=== PATIENT | female | born 1980 | race Caucasian/White ===

== ENCOUNTER 2017-04-19 10:38 | Emergency (ER) | payer OTHER ==
[~2017-04-19 10:38] MED LIST: MOTRIN800 MG PO; TRAMADOL HCL50 MG PO
[2017-04-19] MEDS ORDERED: LEVOTHYROXINE75 MCG PO (10:44)
[2017-04-19] MEDS ORDERED: PRENATABS FA T1 EACH PO (10:45)
[2017-04-19 11:12] LABS: BASO # 0.1 10*3/uL (0.0-0.1); BASO % 0.4 % (0.0-1.0); EOS % 0.2 % (1.0-4.0); HEMATOCRIT 41.2 % (37.0-47.0); HEMOGLOBIN 13.3 g/dl (12.0-16.0); LYMPH # 1.3 10*3/uL (1.3-4.4); LYMPH % 9.8 % (27.0-41.0); MEAN CELL VOLUME 90.4 fl (81.0-99.0); MEAN CORPUSCULAR HGB 29.2 pg (27.0-31.0); MEAN CORPUSCULAR HGB CONC 32.3 g/dl (33.0-37.0); MEAN PLATELET VOLUME 9.6 fl (9.6-12.3); MONO # 0.8 10*3/uL (0.1-1.0); NEUT # 10.8 10*3/uL (2.3-7.9); NEUT % 83.1 % (47.0-73.0); PLATELET COUNT AUTOMATED 309 10*3/uL (130-400); RED BLOOD COUNT 4.56 10*6/uL (4.10-5.10); RED CELL DISTRI WIDTH 12.9 % (0-14.5)
[2017-04-19 11:18] LABS: BILIRUBIN NEGATIVE (NEGATIVE); BLOOD NEGATIVE (NEGATIVE); CLARITY CLEAR (CLEAR); COLOR YELLOW (YELLOW); GLUCOSE NEGATIVE (NEGATIVE); KETONE NEGATIVE (NEGATIVE); LEUKO ESTERASE NEGATIVE (NEGATIVE); NITRITE NEGATIVE (NEGATIVE); UROBILINOGEN 0.2 E.U./dl (0.2-1.0)
[2017-04-19 11:27] LABS: ALBUMIN 3.5 gm/dl (3.1-4.5); ALKALINE PHOSPHATASE 83 U/L (45-117); BUN 13 mg/dl (7-24); CHLORIDE 103 mmol/L (98-107); CREATININE 0.69 mg/dL (0.55-1.02); LIPASE 74 U/L (73-393); POTASSIUM 4.4 mmol/L (3.5-5.1); SGOT/AST 17 IU/L (3-35); SGPT/ALT 30 U/L (12-78); SODIUM 136 mmol/L (136-145); TOTAL PROTEIN 7.3 gm/dL (6.4-8.2)
[2017-04-19 11:32] LABS: BACTERIA 1+; EPITHELIAL CELLS 0-2; RBC 0-2 rbc/hpf (0-2)
[2017-04-19] MEDS ORDERED: FLOMAX0.4 MG PO (15:39)
== END 2017-04-19 15:48 | disposition home or self-care (01) ==
LOC: ED 10:38
PROVIDERS: Physician Assistant
DX: N20.0 Calculus of kidney (principal); Z79.899 Other long term (current) drug therapy

== ENCOUNTER 2018-07-06 19:47 | Emergency (ER) | payer OTHER ==
[~2018-07-06] VITALS: Ht 175.2 cm; Wt 140.6 kg
[~2018-07-06 19:47] MED LIST changes: +FLOMAX0.4 MG PO; +LEVOTHYROXINE75 MCG PO; +PRENATABS FA T1 EACH PO
[2018-07-06 21:11] LABS: BILIRUBIN NEGATIVE (NEGATIVE); BLOOD NEGATIVE (NEGATIVE); CLARITY SL CLOUDY (CLEAR); COLOR YELLOW (YELLOW); GLUCOSE NEGATIVE (NEGATIVE); NITRITE NEGATIVE (NEGATIVE); PH 5.5 (5.0-9.0); SPECIFIC GRAVITY 1.025 (1.005-1.030); UROBILINOGEN 0.2 E.U./dl (0.2-1.0)
[2018-07-06 21:21] LABS: KETONE TRACE (NEGATIVE); LEUKO ESTERASE 2+ (NEGATIVE)
[2018-07-06 21:30] LABS: BACTERIA 2+; EPITHELIAL CELLS 21-30; WBC 41-50 wbc/hpf (0-5)
[2018-07-06] MEDS ORDERED: MACROBID100 M1 PO (21:37)
== END 2018-07-06 21:58 | disposition home or self-care (01) ==
LOC: ED 19:47
PROVIDERS: Emergency Medicine
DX: Z04.1 Encounter for examination and observation following transport accident (principal); Z3A.20 20 weeks gestation of pregnancy; Z79.899 Other long term (current) drug therapy; Z87.442 Personal history of urinary calculi; V49.9XXA Car occupant (driver) (passenger) injured in unspecified traffic accident, initial encounter; Y93.89 Activity, other specified; Y92.488 Other paved roadways as the place of occurrence of the external cause; Y99.8 Other external cause status

== ENCOUNTER 2023-06-16 09:42 | Emergency (ER) | payer OTHER ==
[~2023-06-16] VITALS: Ht 172.7 cm; Wt 149.7 kg
[~2023-06-16 09:42] MED LIST changes: +MACROBID100 M1 PO
[2023-06-16] MEDS ORDERED: ALBUTEROL SULFATE HF (09:52)
[2023-06-16] MEDS ORDERED: LEVOTHYROXINE112 MCG PO (09:53)
[2023-06-16] MEDS ORDERED: AMOXICILLIN500 M2 PO (09:53)
[2023-06-16] MEDS ORDERED: JENCYCLA0.35 M1 PO (09:53)
[2023-06-16] MEDS ORDERED: VIBRAMYCIN100 MG PO (09:53)
[2023-06-16] MEDS ORDERED: ESCITALOPRAM OX20 MG PO (09:54)
[2023-06-16] MEDS ORDERED: CLARITIN10 MG PO (09:54)
[2023-06-16] MEDS ORDERED: Ondansetron Hydrochloride 4 MG/2 ML VIAL IV ONE (10:00)
[2023-06-16] MEDS ORDERED: SODIUM CHLORIDE 0.9% 250 ML IV ONE (10:00)
[2023-06-16 10:18] LABS: HEMATOCRIT 43.6 % (37.0-47.0); MEAN CELL VOLUME 90.1 fl (81.0-99.0); MEAN CORPUSCULAR HGB 28.1 pg (27.0-31.0); MEAN CORPUSCULAR HGB CONC 31.2 g/dl (33.0-37.0); MEAN PLATELET VOLUME 9.5 fl (9.6-12.3); PLATELET COUNT AUTOMATED 443 10*3/uL (130-400); RED BLOOD COUNT 4.84 10*6/uL (4.10-5.10); RED CELL DISTRI WIDTH 13.1 % (0-14.5); WHITE BLOOD COUNT 11.4 10*3/uL (4.8-10.8)
[2023-06-16] MEDS ORDERED: SODIUM CHLORIDE 0.9% 500 ML IV ONE (10:28)
[2023-06-16 10:29] LABS: MANUAL DIFF REFLEX YES
[2023-06-16 10:37] LABS: ATYPICAL LYMPHS 1 % (0-0); PLATELET SUFFICIENCY HIGH (NORMAL); TOTAL CELLS COUNTED 100 #CELLS
[2023-06-16 10:39] LABS: ALKALINE PHOSPHATASE 78 U/L (46-116); BUN 8 mg/dl (9-23); CHLORIDE 101 mmol/L (98-107); LIPASE 36 U/L (12-53); POTASSIUM 4.3 mmol/L (3.4-5.1); SGPT/ALT 21 U/L (5-49); TOTAL PROTEIN 7.9 gm/dL (6.0-8.0)
[2023-06-16] MEDS ORDERED: ACETAMINOPHEN 325 MG TAB PO ONE (11:35)
[2023-06-16] MEDS ORDERED: ONDANSETRON4 MG SL (11:37)
== END 2023-06-16 11:57 | disposition home or self-care (01) ==
LOC: ED 09:42
PROVIDERS: Internal Medicine
DX: R11.2 Nausea with vomiting, unspecified (principal); R51.9 Headache, unspecified; F41.9 Anxiety disorder, unspecified